=== PATIENT | male | born 1995 | race Caucasian/White ===

== ENCOUNTER 2021-01-14 23:58 | Emergency (ER) | payer MEDICAID ==
[~2021-01-14] VITALS: Ht 177.8 cm; Wt 83.9 kg
[2021-01-15] MEDS ORDERED: midazolam 1 mg/ML 2ml injection IV ONE (00:04)
[2021-01-15] MEDS ORDERED: MIDAZolam 5mg/ml 2ml vial IM ONE (00:05)
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
[2021-01-15] MEDS ORDERED: MIDAZolam 5mg/ml 2ml vial IV ONE (00:15)
[2021-01-15] MEDS ORDERED: iohexol 300mg/ml 100ml inj. ONE (00:39)
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
[2021-01-15 00:55] LABS: ALANINE AMINOTRANSFERASE 33 U/L (12-78); ALBUMIN/GLOBULIN RATIO 1.6 (1.1-1.5); ALKALINE PHOSPHATASE 59 IU/L (46-116); ANION GAP 17 (8-16); ASPARTATE AMINO TRANSFERASE 28 U/L (10-37); BILIRUBIN,TOTAL 0.6 MG/DL (0.1-1.0); BLOOD UREA NITROGEN 15 MG/DL (7-18); BUN/CREATININE RATIO 13.5 (5.4-32.0); CALCIUM 8.2 MG/DL (8.5-10.1); CHLORIDE 104 MMOL/L (99-107); CREATININE 1.11 MG/DL (0.60-1.10); ETHANOL 0.199 GM/DL (0.0-0.010); GLUCOSE 105 MG/DL (70-104); POTASSIUM 3.7 MMOL/L (3.5-5.1); SODIUM 142 MMOL/L (135-145); TOTAL CARBON DIOXIDE 21.4 MMOL/L (24-32); TOTAL PROTEIN 8.2 G/DL (6.4-8.2); eGFR 82 ML/MIN
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
[2021-01-15 01:51] LABS: BASOPHILS % (AUTO) 0.4 % (0-1); EOSINOPHILS # (AUTO) 0.1 X10'3 (0-0.9); EOSINOPHILS % (AUTO) 0.4 % (0-6); HEMATOCRIT 46.6 % (42.0-52.0); HEMOGLOBIN 15.5 g/dl (14.0-17.9); LYMPHOCYTES % (AUTO) 14.6 % (21-51); MEAN CORPUSCULAR HEMOGLOBIN 29.5 PG (27.0-31.0); MEAN CORPUSCULAR HGB CONC 33.3 g/dL (33.0-36.5); MEAN CORPUSCULAR VOLUME 88.6 FL (78-98); MEAN PLATELET VOLUME 8.6 FL (7.4-10.4); MONOCYTES # (AUTO) 0.7 X10'3 (0-0.9); MONOCYTES % (AUTO) 5.1 % (2-12); NEUTROPHILS % (AUTO) 79.5 % (42-75); PLATELET COUNT 291 X10'3 (140-440); RED BLOOD COUNT 5.26 X10'6 (4.70-6.10); RED CELL DISTRIBUTION WIDTH 13.6 % (11.5-14.5); WHITE BLOOD COUNT 13.8 X10'3 (4.5-11.0)
--- NOTE | 2021-01-15 02:15 | NUR ---
RESTRAINTS REMOVED. PT SLEEPING, VITAL WNL
--- NOTE | 2021-01-15 02:18 | NUR ---
AVELINO MCNEILL [phone] PATIENT'S BROTHER PHONE NUMBER
[2021-01-15] MEDS ORDERED: normal saline 1000ml 1,000 ML IV ONE (02:20)
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
[2021-01-15 04:00] VITALS: BP 115/53
--- NOTE | 2021-01-15 04:51 | NUR ---
PT RESPONDING AT THIS TIME. ABLE TO OPEN EE TO VERBAL COMMAND AND MUMBLING. STILL UNABLE TO SIT UP OR PERFORM A GAIT TEST.
--- NOTE | 2021-01-15 05:45 | NUR ---
PT AMBULATING W/ STEADY GAIT. CALLED PT BROTHER FOR TRANSPORTATION
== END 2021-01-15 06:06 | disposition home or self-care (01) ==
LOC: ER 01-15 00:04 → MERGE 01-15 00:04 → ER 01-15 06:06
DX: S00.03XA Contusion of scalp, initial encounter (principal); S06.9X9A Unspecified intracranial injury with loss of consciousness of unspecified duration, initial encounter; F10.129 Alcohol abuse with intoxication, unspecified; R45.1 Restlessness and agitation; X58.XXXA Exposure to other specified factors, initial encounter; Y93.89 Activity, other specified; Y92.89 Other specified places as the place of occurrence of the external cause; Y99.8 Other external cause status; Y90.0 Blood alcohol level of less than 20 mg/100 ml
CPT/HCPCS: 36415; 70450; 70486; 71260; 72125; 74177; 80053; 80320; 85025; 96361; 96372; 96374; 99285; J2250; J7030; Q9967

== ENCOUNTER 2021-01-26 14:39 | Emergency (ER) | payer OTHER, MEDICAID ==
[~2021-01-26] VITALS: Ht 175.3 cm; Wt 86.8 kg
--- NOTE | 2021-01-26 18:34 | NUR ---
Report to [place]
--- NOTE | 2021-01-26 18:45 | NUR ---
ASSUMED CARE OF PT. PT SITTING ON BED TALKING ON CELLPHONE. PT [id number].
[2021-01-26 19:02] VITALS: BP 144/85
== END 2021-01-26 19:03 | disposition home or self-care (01) ==
LOC: ER 14:40
DX: F07.81 Postconcussional syndrome (principal); R42 Dizziness and giddiness; H57.89 Other specified disorders of eye and adnexa; R11.10 Vomiting, unspecified
CPT/HCPCS: 70450; 70486; 99285

== ENCOUNTER 2022-12-23 16:15 | Emergency (ER) | payer OTHER, MEDICAID ==
[~2022-12-23] VITALS: Ht 180.3 cm; Wt 93.4 kg
[2022-12-23 16:35] VITALS: BP 156/103; PULSE 56; RESP 16; TEMP 97.8; O2SAT 99
[2022-12-23] MEDS ORDERED: LIDOcaine 1% 30ml preserv. free vial IJ ONE (17:05)
[2022-12-23] MEDS ORDERED: TETanus/Pertussis (Acell)/Diphther VAC/PF (Tdap-Adult) 0.5ml syringe IMVAC ONE (17:05)
--- NOTE | 2022-12-23 17:44 | NUR ---
LIDOCAINE ADMINISTERED BY PROVIDER JEANNETTE.
== END 2022-12-23 18:34 | disposition home or self-care (01) ==
LOC: ER 16:16
DX: S61.211A Laceration without foreign body of left index finger without damage to nail, initial encounter (principal); W29.3XXA Contact with powered garden and outdoor hand tools and machinery, initial encounter; Y93.89 Activity, other specified; Y92.89 Other specified places as the place of occurrence of the external cause; Y99.8 Other external cause status
CPT/HCPCS: 12001; 90471; 90715; 99283; J3490; J7030; A6449